=== PATIENT | female | born 1935 | race Caucasian/White ===

== ENCOUNTER 2016-12-18 19:27 | Inpatient (IN) | payer MEDICARE, BC ==
[2016-12-18] MEDS ORDERED: methylPREDNISolone SOD SUCCI 125 MG/2 ML VIAL IV STA (20:14)
[2016-12-18] MEDS ORDERED: AZITHROMYCIN 500 MG in SODIUM CHLORIDE 0.9% 250 ML IVPB STA (20:14)
[2016-12-18] MEDS ORDERED: ALBUTEROL NEBULIZED 2.5 MG/3 ML INHALATION STA (20:14)
[2016-12-18] MEDS ORDERED: IPRATROPIUM 0.5 MG/2.5 ML NEBU INHALATION STA (20:14)
[2016-12-18] MEDS ORDERED: SODIUM CHLORIDE 0.9% 1,000 ML IV STA ×2 (20:14)
[2016-12-18] MEDS ORDERED: LORazepam 2 MG/ML SYRINGE IV STA (20:14)
[2016-12-18 20:27] LABS: Basophils % (A) 0 %; Eosinophils % (A) 0 %; HCT 44.1 % (34.0-46.0); HDW 3.17; HGB 14.8 gm/dL (11.4-16.0); Luc # (Auto) 0.15; Luc % (Auto) 2; Lymphocytes # (A) 1.7 k/uL (1.0-4.8); Lymphocytes % (A) 20 %; MCH 29.1 pg (25.0-35.0); MCHC 33.7 g/dL (31.0-37.0); MCV 86.3 fL (80.0-100.0); Mean Platelet Volume 7.1; Monocytes # (A) 0.6 k/uL (0-1.0); Monocytes % (A) 7 %; Neutrophils # (A) 6.1 k/uL (1.3-7.7); Neutrophils % (A) 71 %; RBC 5.11 m/uL (3.80-5.40); RDW 14.1 % (11.5-15.5); WBC 8.6 k/uL (3.8-10.6); WBC (Perox) 8.97
[2016-12-18 20:48] LABS: ALT 35 U/L (9-52); AST 19 U/L (14-36); Alkaline Phosphatase 122 U/L (38-126); Anion Gap 16 mmol/L; Blood Urea Nitrogen 15 mg/dL (7-17); Calcium 10.3 mg/dL (8.4-10.2); Carbon Dioxide 23 mmol/L (22-30); Chloride 104 mmol/L (98-107); Glucose 113 mg/dL (74-99); Magnesium 1.8 mg/dL (1.6-2.3); Non-African American GFR(MDRD) >60 (>60 ml/min/1.73 sqM); Potassium 3.7 mmol/L (3.5-5.1); Sodium 143 mmol/L (137-145); Total Bilirubin 0.6 mg/dL (0.2-1.3); Total Protein 7.4 g/dL (6.3-8.2)
[2016-12-18 20:58] LABS: Creatine Kinase 25 U/L (30-135); INR 1.1 (<1.1); Prothrombin Time 11.3 sec (9.0-12.0)
[2016-12-18 21:11] LABS: Creatine Kinase MB 0.9 ng/mL (0.0-2.4); Troponin I <0.012 ng/mL (0.000-0.034)
--- NOTE | 2016-12-18 21:14 | ED ---
General Adult HPI - General Chief complaint: Shortness of Breath Stated complaint: Diff breathing Time Seen by Provider: 12/18/16 19:51 Source: patient, RN notes reviewed, old records reviewed Mode of arrival: wheelchair Limitations: no limitations - History of Present Illness Initial comments: This is a 81-year-old female here for evaluation of shortness of cough and congestion, severe shortness of breath history of COPD. Increasing the last 2- 3 days, patient is on home O2. Patient is due. She was at home with no help. She does have increased fever and cough and congestion. Feels like her heart is racing and she has tremors feels very very anxious. No recent travel history , no recent hospitalizations, no sick contacts - Related Data Home Medications Medication Instructions Recorded Confirmed ALPRAZolam [Xanax] 0.5 mg PO BID PRN 12/18/16 12/18/16 Acetaminophen Tab [Tylenol Tab] 650 mg PO Q4H PRN 12/18/16 12/18/16 Cyanocobalamin [Vitamin B-12] 500 mcg PO DAILY 12/18/16 12/18/16 Diltiazem HCl [Cartia Xt] 240 mg PO DAILY 12/18/16 12/18/16 Ipratropium-Albuterol Nebulize 3 ml INHALATION RT-QID PRN 12/18/16 12/18/16 [Duoneb 0.5 mg-3 mg/3 ml Soln] Levofloxacin [Levaquin] 750 mg PO DAILY 12/18/16 12/18/16 Metoprolol Tartrate [Lopressor] 12.5 mg PO BID 12/18/16 12/18/16 Nystatin 100,000 Unit/ml Susp 4 ml PO QID 12/18/16 12/18/16 [Mycostatin Oral Susp] Polyethylene Glycol 3350 [Miralax] 17 gm PO DAILY PRN 12/18/16 12/18/16 Sertraline [Zoloft] 100 mg PO DAILY 12/18/16 12/18/16 Simvastatin [Zocor] 20 mg PO HS 12/18/16 12/18/16 Tiotropium [place] [Spiriva 1 cap INHALATION RT-DAILY 12/18/16 12/18/16 Respimat] Venlafaxine HCl ER [Effexor Xr] 37.5 mg PO BID 12/18/16 12/18/16 guaiFENesin-DM 600/30MG [Mucinex 1 tab PO Q12HR PRN 12/18/16 12/18/16 Dm] Allergies Allergy/AdvReac Type Severity Reaction Status Date / Time codeine Allergy Unknown Verified 12/18/16 19:59 meperidine HCl [From Demerol] Allergy Unknown Verified 12/18/16 19:59 Sulfa (Sulfonamide Allergy Unknown Verified 12/18/16 19:59 Antibiotics) Review of Systems ROS Statement: Those systems with pertinent positive or pertinent negative responses have been documented in the HPI. ROS Other: All systems not noted in ROS Statement are negative. Past Medical History Past Medical History: COPD, Diabetes Mellitus History of Any Multi-Drug Resistant Organisms: None Reported Past Surgical History: Orthopedic Surgery Past Psychological History: No Psychological Hx Reported Smoking Status: Former smoker Past Alcohol Use History: None Reported Past Drug Use History: None Reported General Exam Limitations: no limitations General appearance: alert, in no apparent distress, anxious Head exam: Present: atraumatic, normocephalic, normal inspection Eye exam: Present: normal appearance, PERRL, EOMI. Absent: scleral icterus, conjunctival injection, periorbital swelling ENT exam: Present: normal exam, mucous membranes moist Neck exam: Present: normal inspection. Absent: tenderness, meningismus, lymphadenopathy Respiratory exam: Present: normal lung sounds bilaterally, wheezes, decreased breath sounds, prolonged expiratory. Absent: respiratory distress, rales, rhonchi, stridor Cardiovascular Exam: Present: regular rate, normal rhythm, normal heart sounds. Absent: systolic murmur, diastolic murmur, rubs, gallop, clicks GI/Abdominal exam: Present: soft, normal bowel sounds. Absent: distended, tenderness, guarding, rebound, rigid Extremities exam: Present: normal inspection, full ROM, normal capillary refill. Absent: tenderness, pedal edema, joint swelling, calf tenderness Back exam: Present: normal inspection Neurological exam: Present: alert, oriented X3, CN II-XII intact Psychiatric exam: Present: normal affect, normal mood Skin exam: Present: warm, dry, intact, normal color. Absent: rash Course Vital Signs 12/18/16 12/18/16 12/18/16 19:30 20:13 21:02 Temperature 98.9 F Pulse Rate 69 110 H 90 Respiratory 24 18 Rate Blood Pressure 139/105 180/86 O2 Sat by Pulse 87 L 96 Oximetry 12/18/16 12/18/16 21:33 21:44 Temperature Pulse Rate 100 100 Respiratory 16 Rate Blood Pressure 139/86 O2 Sat by Pulse 97 Oximetry - Reevaluation(s) Reevaluation #1: 12/18/16 21:14 Patient's breathing is much improved with prolonged breathing treatment EKG Findings - EKG Comments: EKG Findings:: EKG shows sinus tachycardia rate 103, by mouth 40, QRS 112, QTC 453 Medical Decision Making - Medical Decision Making 81 female here for evaluation shortness of breath, patient with anxiety as well , patient has COPD exacerbation with hypoxia improved. She will admit for steroids and continued breathing treatments as well as anti-anxiety medications - Lab Data Result diagrams: 12/18/16 20:00 12/18/16 20:00 Lab Results 12/18/16 12/18/16 12/18/16 Range/Units 20:00 20:00 20:00 WBC 8.6 (3.8-10.6) k/uL RBC 5.11 (3.80-5.40) m/uL Hgb 14.8 (11.4-16.0) gm/dL Hct 44.1 (34.0-46.0) % MCV 86.3 (80.0-100.0) fL MCH 29.1 (25.0-35.0) pg MCHC 33.7 (31.0-37.0) g/dL RDW 14.1 (11.5-15.5) % Plt Count 221 (150-450) k/uL Neutrophils % 71 % Lymphocytes % 20 % Monocytes % 7 % Eosinophils % 0 % Basophils % 0 % Neutrophils # 6.1 (1.3-7.7) k/uL Lymphocytes # 1.7 (1.0-4.8) k/uL Monocytes # 0.6 (0-1.0) k/uL Eosinophils # 0.0 (0-0.7) k/uL Basophils # 0.0 (0-0.2) k/uL PT (9.0-12.0) sec INR (<1.1) APTT (22.0-30.0) sec Sodium 143 (137-145) mmol/L Potassium 3.7 (3.5-5.1) mmol/L Chloride 104 (98-107) mmol/L Carbon Dioxide 23 (22-30) mmol/L Anion Gap 16 mmol/L BUN 15 (7-17) mg/dL Creatinine 0.82 (0.52-1.04) mg/dL Est GFR (MDRD) Af Amer >60 (>60 ml/min/1.73 sqM) Est GFR (MDRD) Non-Af >60 (>60 ml/min/1.73 sqM) Glucose 113 H (74-99) mg/dL Calcium 10.3 H (8.4-10.2) mg/dL Magnesium 1.8 (1.6-2.3) mg/dL Total Bilirubin 0.6 (0.2-1.3) mg/dL AST 19 (14-36) U/L ALT 35 (9-52) U/L Alkaline Phosphatase 122 (38-126) U/L Total Creatine Kinase 25 L (30-135) U/L CK-MB (CK-2) 0.9 (0.0-2.4) ng/mL CK-MB (CK-2) Rel Index 3.6 Troponin I <0.012 (0.000-0.034) ng/mL NT-Pro-B Natriuret Pep pg/mL Total Protein 7.4 (6.3-8.2) g/dL Albumin 4.3 (3.5-5.0) g/dL 12/18/16 12/18/16 Range/Units 20:00 20:00 WBC (3.8-10.6) k/uL RBC (3.80-5.40) m/uL Hgb (11.4-16.0) gm/dL Hct (34.0-46.0) % MCV (80.0-100.0) fL MCH (25.0-35.0) pg MCHC (31.0-37.0) g/dL RDW (11.5-15.5) % Plt Count (150-450) k/uL Neutrophils % % Lymphocytes % % Monocytes % % Eosinophils % % Basophils % % Neutrophils # (1.3-7.7) k/uL Lymphocytes # (1.0-4.8) k/uL Monocytes # (0-1.0) k/uL Eosinophils # (0-0.7) k/uL Basophils # (0-0.2) k/uL PT 11.3 (9.0-12.0) sec INR 1.1 (<1.1) APTT 24.0 (22.0-30.0) sec Sodium (137-145) mmol/L Potassium (3.5-5.1) mmol/L Chloride (98-107) mmol/L Carbon Dioxide (22-30) mmol/L Anion Gap mmol/L BUN (7-17) mg/dL Creatinine (0.52-1.04) mg/dL Est GFR (MDRD) Af Amer (>60 ml/min/1.73 sqM) Est GFR (MDRD) Non-Af (>60 ml/min/1.73 sqM) Glucose (74-99) mg/dL Calcium (8.4-10.2) mg/dL Magnesium (1.6-2.3) mg/dL Total Bilirubin (0.2-1.3) mg/dL AST (14-36) U/L ALT (9-52) U/L Alkaline Phosphatase (38-126) U/L Total Creatine Kinase (30-135) U/L CK-MB (CK-2) (0.0-2.4) ng/mL CK-MB (CK-2) Rel Index Troponin I (0.000-0.034) ng/mL NT-Pro-B Natriuret Pep 1570 pg/mL Total Protein (6.3-8.2) g/dL Albumin (3.5-5.0) g/dL - Radiology Data Radiology results: report reviewed (Chest x-ray 2 views negative for acute disease), image reviewed Disposition Clinical Impression: Acute exacerbation of chronic obstructive airways disease Disposition: ADMITTED IP TO THIS HOSP Condition: Fair Referrals: Jensen Armstrong DO [Primary Care Provider] - 1-2 days
[2016-12-18 23:01] LABS: Glucose,Whole Blood 177 mg/dL (75-99)
[2016-12-18] MEDS: SODIUM CHLORIDE 0.9% 1,000 ML IV SCH (23:26)
[2016-12-18] MEDS ORDERED: INSULIN LISPRO (humaLOG) 300 UNIT/3 ML VIAL SQ ONE (23:48)
[2016-12-19] MEDS: methylPREDNISolone SOD SUCCI 125 MG/2 ML VIAL IV SCH ×5 (05:35→23:11)
[2016-12-19] MEDS: IPRATROPIUM-ALBUTEROL 3 ML NEB INHALATION SCH ×4 (06:51→19:10)
--- NOTE | 2016-12-19 06:51 | XR ---
EXAMINATION TYPE: XR chest 2V DATE OF EXAM: 12/19/2016 6:47 AM COMPARISON: 07/31/2016 HISTORY: Difficulty breathing TECHNIQUE: Frontal and lateral views of the chest are obtained. FINDINGS: There is mild linear density in the right midlung. There is no heart failure. Costophrenic angles are clear. There are no hilar masses. There are chest leads. IMPRESSION: There is atelectasis in the right midlung that is increased compared to last exam. No he art failure.
[2016-12-19 07:32] LABS: Glucose,Whole Blood 158 mg/dL (75-99)
[2016-12-19] MEDS: SODIUM CHLORIDE 0.9% 1,000 ML IV SCH (07:48)
[2016-12-19] MEDS: INSULIN LISPRO (humaLOG) 300 UNIT/3 ML VIAL SQ SCH ×4 (07:48→20:29)
[2016-12-19] MEDS: ENOXAPARIN 40 MG/0.4 ML SYRINGE SQ SCH (07:48)
[2016-12-19 08:18] LABS: Hemoglobin A1C 5.4 % (4.2-6.1)
[2016-12-19] MEDS ORDERED: guaiFENesin-DM 600/30MG 1 EACH TAB.ER.12H PO PRN (09:46)
[2016-12-19] MEDS ORDERED: IPRATROPIUM-ALBUTEROL 3 ML NEB INHALATION PRN (09:46)
[2016-12-19] MEDS ORDERED: ALPRAZolam 0.5 MG TAB PO PRN (09:46)
[2016-12-19] MEDS ORDERED: POLYETHYLENE GLYCOL 3350 17 GM POWD.PACK PO PRN (09:46)
[2016-12-19] MEDS ORDERED: NYSTATIN 100,000 UNIT/ML SUSP 500,000 UNIT/5 ML CUP PO SCH (10:00)
[2016-12-19] MEDS ORDERED: VENLAFAXINE HCL ER 37.5 MG CAP PO SCH (10:00)
--- NOTE | 2016-12-19 10:27 | P.CNPUL ---
History of Present Illness Consult date: 12/19/16 Reason for consult: dyspnea, COPD, other Chief complaint: Shortness of breath and dysphasia History of present illness: This is an 81-year-old female who apparently presented to the emergency department with complaints of shortness of breath chest congestion and also difficulty swallowing. She apparently was seen by Dr. Chavarria earlier this week and given some nystatin swish and swallow. She she apparently developed some difficulty swallowing with this medication for that reason she came to the emergency room with complaints of shortness of breath and dysphasia. Also chest congestion and cough. Did have some slight temperature elevation and she felt like her heart was racing. Not a particularly good historian. Review of Systems A 12 point review of system is positive for shortness of breath chest congestion cough difficulty swallowing palpitations and some minimal phlegm production. Past Medical History Past Medical History: COPD, Diabetes Mellitus History of Any Multi-Drug Resistant Organisms: None Reported Past Surgical History: Hysterectomy, Orthopedic Surgery Past Anesthesia/Blood Transfusion Reactions: No Reported Reaction Past Psychological History: No Psychological Hx Reported Smoking Status: Former smoker Past Alcohol Use History: None Reported Past Drug Use History: None Reported Medications and Allergies Home Medications Medication Instructions Recorded Confirmed Type ALPRAZolam [Xanax] 0.5 mg PO BID PRN 12/18/16 12/18/16 History Acetaminophen Tab [Tylenol Tab] 650 mg PO Q4H PRN 12/18/16 12/18/16 History Cyanocobalamin [Vitamin B-12] 500 mcg PO DAILY 12/18/16 12/18/16 History Diltiazem HCl [Cartia Xt] 240 mg PO DAILY 12/18/16 12/18/16 History Ipratropium-Albuterol Nebulize 3 ml INHALATION RT-QID PRN 12/18/16 12/18/16 History [Duoneb 0.5 mg-3 mg/3 ml Soln] Levofloxacin [Levaquin] 750 mg PO DAILY 12/18/16 12/18/16 History Metoprolol Tartrate [Lopressor] 12.5 mg PO BID 12/18/16 12/18/16 History Nystatin 100,000 Unit/ml Susp 4 ml PO QID 12/18/16 12/18/16 History [Mycostatin Oral Susp] Polyethylene Glycol 3350 [Miralax] 17 gm PO DAILY PRN 12/18/16 12/18/16 History Sertraline [Zoloft] 100 mg PO DAILY 12/18/16 12/18/16 History Simvastatin [Zocor] 20 mg PO HS 12/18/16 12/18/16 History Tiotropium [place] [Spiriva 1 cap INHALATION RT-DAILY 12/18/16 12/18/16 History Respimat] Venlafaxine HCl ER [Effexor Xr] 37.5 mg PO BID 12/18/16 12/18/16 History guaiFENesin-DM 600/30MG [Mucinex 1 tab PO Q12HR PRN 12/18/16 12/18/16 History Dm] Allergies Allergy/AdvReac Type Severity Reaction Status Date / Time codeine Allergy hives Verified 12/18/16 23:24 meperidine HCl [From Demerol] Allergy Unknown Verified 12/18/16 19:59 Sulfa (Sulfonamide Allergy Unknown Verified 12/18/16 19:59 Antibiotics) Physical Exam Osteopathic Statement: *. No significant issues noted on an osteopathic structural exam other than those noted in the History and Physical/Consult. Vitals: Vital Signs Temp Pulse Pulse Resp BP BP BP 12/19/16 07:01 94 12/19/16 07:00 96.1 F L 97 16 146/91 12/19/16 06:51 92 12/18/16 23:00 99.2 F 108 H 18 158/77 12/18/16 21:44 100 16 139/86 12/18/16 21:33 100 Pulse Ox 12/19/16 07:01 12/19/16 07:00 98 12/19/16 06:51 12/18/16 23:00 94 L 12/18/16 21:44 97 12/18/16 21:33 Intake and Output 12/18/16 12/19/16 12/19/16 22:59 06:59 14:59 Intake Total 240 120 Balance 240 120 Intake: Oral 240 120 Other: Voiding Method Bedside Commode Bedside Commode # Voids 0 2 # Bowel Movements 0 1 No acute distress. Oriented 3. Very poor historian. Laying flat in bed. No respiratory distress. No audible wheezing. HEENT examination is grossly unremarkable. Mucous membranes are moist. No oral lesions. Neck supple. Full range of motion. No adenopathy. Cardiovascular examination reveals borderline tachycardia. Heart rate right around 100. S1 and S2 normal. There is no murmur. Lungs reveal few scattered rhonchi wheezes. Breath sounds diminished. There is prolongation on forced maneuver. No crackles. Abdomen soft bowel sounds are heard. Extremities are intact. Results - Laboratory Findings CBC and BMP: 12/18/16 20:00 12/18/16 20:00 PT/INR, D-dimer PT 11.3 sec (9.0-12.0) 12/18/16 20:00 INR 1.1 (<1.1) 12/18/16 20:00 Abnormal lab findings: Abnormal Labs 12/18/16 12/19/16 22:59 07:05 POC Glucose (mg/dL) 177 H 158 H - Diagnostic Findings Chest x-ray: image reviewed (Chest x-ray labs and medications are all reviewed.) Assessment and Plan (1) Dysphasia Status: Acute (2) Acute exacerbation of chronic obstructive airways disease Status: Acute Plan: Plan The patient's medications x-rays and labs are reviewed. We'll make she's sure she is on all the usual medications for COPD exacerbation. The medicine that Dr. Chavarria gave her for dysphasia was nystatin swish and swallow. She will not get anymore that. I'm not sure whether or not she had an ALLERGIC reaction to it or not. Other than that everything seemed be reasonably stable. Time with Patient: Greater than 30
[2016-12-19] MEDS: METOPROLOL TARTRATE 12.5 MG TAB PO SCH ×2 (10:29→20:29)
[2016-12-19] MEDS: DILTIAZEM CD 240 MG CAP.ER.24H PO SCH (10:29)
[2016-12-19] MEDS: SERTRALINE 100 MG TAB PO SCH (10:29)
[2016-12-19 12:14] LABS: Glucose,Whole Blood 138 mg/dL (75-99)
[2016-12-19] MEDS: FUROSEMIDE 10 MG/ML 2 ML VIAL IV SCH ×2 (12:54→17:30)
--- NOTE | 2016-12-19 13:03 | HP ---
DATE OF ADMISSION: 12/18/2016 PRESENTING COMPLAINT: Short of breath. HISTORY OF PRESENTING COMPLAINT: This is a pleasant 81-year-old patient of Dr. Armstrong with long-standing history of COPD, diabetes mellitus type 2, depression, hypertension, hypercholesterolemia, the latter conditions which are stable. Patient presented with congestion, short of breath going on at least for 5 days. No phlegm, no fever. Decreased appetite, rundown. Admitted for the same. REVIEW OF SYSTEMS: CONSTITUTIONAL: Tired. HEENT: None. RESPIRATORY: As above. CARDIOVASCULAR: As above. GASTROINTESTINAL: None. GENITOURINARY: None. MUSCULOSKELETAL: None. DERMATOLOGIC: None. HEMATOLOGIC: None. LYMPHATIC: None. PSYCHIATRY: Some anxiety. NEUROLOGICAL: None. Past medical history of COPD, diabetes mellitus type 2, depression, hypercholesterolemia. PAST SURGICAL HISTORY: Hysterectomy, orthopedic surgery. SOCIAL HISTORY: Patient is an ex-smoker, lives with 3 sons. Has a ( ) when she goes outside the house. FAMILY HISTORY: Reviewed, noncontributory to the presentation. HOME MEDICATIONS: 1. Zoloft 100 mg a day. 2. Nystatin suspension 4 mL q.i.d. 3. Lopressor 12.5 p.o. b.i.d. 4. Vitamin B12, 500 mcg p.o. daily. 5. Xanax 0.5 p.o. b.i.d. p.r.n. 6. Mucinex DM 1 tablet p.o. q.12 p.r.n. 7. Effexor XR 37.5 mg p.o. b.i.d. 8. Spiriva 1 capsule daily. 9. Zocor 20 mg p.o. q.h.s. 10. MiraLAX 17 grams p.o. daily p.r.n. 11. Levaquin 750 mg p.o. daily. 12. DuoNeb 3 mL q.i.d. p.r.n. 13. Cartia XT 240 mg daily. Allergies to CODEINE, MEPERIDINE, SULFA. On examination, temperature 98.9, pulse 69, respirations 24, blood pressure 139/105, pulse ox 87% on 3 L. GENERAL APPEARANCE: Average build, lying in bed, tired appearing, short of breath at rest. EYES: Pupils equal. Conjunctivae normal. HEENT: External appearance of nose and ears normal. Oral cavity normal. NECK: JVD possibly raised. Mass not palpable. RESPIRATORY: Effort increased. LUNGS: Basal crackles ( ) wheezing. CARDIOVASCULAR: First and second sounds normal. Mild edema. ABDOMEN: Soft, nontender. Liver and spleen not palpable. LYMPHATIC: No lymph nodes palpable in neck or axillae. PSYCHIATRY: Alert and oriented x3. Mood and affect anxious appearing. NEUROLOGICAL: Pupils equal. Cranial nerves grossly intact. Power and sensation grossly intact. Mild tremors. MUSCULOSKELETAL: Evidence of osteoarthritis of multiple joints. INVESTIGATIONS: White count 8.6, hemoglobin 14.8 . Potassium 3.7. BUN and creatinine normal. ProBNP 1570. Chest x-ray shows right basilar infiltrate and vascular prominence it looks like. ASSESSMENT: 1. Right lower lobe pneumonia, present on admission, suspect gram-negative organism. 2. Acute chronic obstructive pulmonary disease exacerbation in an ex-smoker. 3. Possibly acute congestive heart failure, ejection fraction not known. The patient has elevated BNP and some basal crackles. 4. Depression, not otherwise specified. 5. Hypercholesterolemia. 6. Primary osteoarthritis of multiple joints, bilateral, chronic. PLAN: Patient started on nebulized bronchodilators, IV steroids. Also put the patient on small dose of Lasix. Will ( ) the IV fluids. Get a 2-D echocardiogram. Care was discussed with the patient. Pulmonary opinion was mabel. Home medications are resumed.
[2016-12-19 17:07] LABS: Glucose,Whole Blood 156 mg/dL (75-99)
[2016-12-19] MEDS: SYMBICORT 160-4.5 MCG INHALER INHALATION SCH (19:10)
[2016-12-19 20:24] LABS: Glucose,Whole Blood 139 mg/dL (75-99)
[2016-12-19] MEDS: ATORVASTATIN 10 MG TAB PO SCH (20:29)
[2016-12-20] MEDS: methylPREDNISolone SOD SUCCI 125 MG/2 ML VIAL IV SCH (05:28)
[2016-12-20 07:15] LABS: Glucose,Whole Blood 124 mg/dL (75-99)
[2016-12-20] MEDS: INSULIN LISPRO (humaLOG) 300 UNIT/3 ML VIAL SQ SCH ×4 (07:50→21:13)
[2016-12-20] MEDS ORDERED: TIOTROPIUM 18 MCG/PUFF INHALER INHALATION SCH (08:00)
[2016-12-20] MEDS: SYMBICORT 160-4.5 MCG INHALER INHALATION SCH ×2 (08:28→20:27)
[2016-12-20] MEDS: IPRATROPIUM-ALBUTEROL 3 ML NEB INHALATION SCH ×4 (08:28→20:27)
[2016-12-20] MEDS: METOPROLOL TARTRATE 12.5 MG TAB PO SCH ×2 (08:46→21:12)
[2016-12-20] MEDS: SERTRALINE 100 MG TAB PO SCH (08:46)
[2016-12-20] MEDS: ENOXAPARIN 40 MG/0.4 ML SYRINGE SQ SCH (08:47)
[2016-12-20] MEDS: DILTIAZEM CD 240 MG CAP.ER.24H PO SCH (08:47)
--- NOTE | 2016-12-20 11:38 | P.PN ---
Subjective Progress note dated 12/20/2016 This is an 81-year-old female who presented to the emergency department with complaints of shortness of breath and chest congestion. She also apparently has some dysphasia. She believes dysphagia was caused by some nystatin swish and swallow given to her by my partner who she saw earlier this week MR office. From the pulmonary standpoint doing relatively well. In my opinion she could be discharged. Not complaining of any shortness of breath chest congestion tightness or other pulmonary complaints at this time. The difficulty swallowing has improved. Her primary physicians in [place]. Objective - Vital Signs Vital signs: Vital Signs Temp 98.3 F 12/20/16 07:00 Pulse 84 12/20/16 08:46 Resp 20 12/20/16 07:00 BP 146/80 12/20/16 07:00 Pulse Ox 94 L 12/20/16 07:00 Intake & Output 12/19/16 12/20/16 12/20/16 18:59 06:59 18:59 Intake Total 240 240 Balance 240 240 Intake: Oral 240 240 Other: Voiding Method Bedside Commode Toilet Bedside Commode # Voids 7 2 # Bowel Movements 2 - Exam No acute distress, oriented 3. HEENT examination is grossly unremarkable. Mucous membranes are moist. Neck supple. Full range of motion. No adenopathy or thyromegaly. Neck veins are flat. Cardiovascular examination reveals regular rhythm rate. S1-S2 normal. No murmur. Lungs reveal relatively clear breath sounds. Breath sounds are diminished. No wheezes rhonchi or crackles to any great extent. Slight prolongation. Abdomen soft bowel sounds are heard. Extremities are intact. - Labs CBC & Chem 7: 12/18/16 20:00 12/18/16 20:00 Labs: Abnormal Lab Results - Last 24 Hours (Table) 12/19/16 12/19/16 12/19/16 Range/Units 11:55 17:01 20:23 POC Glucose (mg/dL) 138 H 156 H 139 H (75-99) mg/dL 12/20/16 Range/Units 06:53 POC Glucose (mg/dL) 124 H (75-99) mg/dL Assessment and Plan (1) Dysphasia Status: Acute (2) Acute exacerbation of chronic obstructive airways disease Status: Acute Plan: Plan The patient's medications x-rays and labs are reviewed. We'll make she's sure she is on all the usual medications for COPD exacerbation. The medicine that Dr. Chavarria gave her for dysphasia was nystatin swish and swallow. She will not get anymore that. I'm not sure whether or not she had an ALLERGIC reaction to it or not. Other than that everything seemed be reasonably stable. Plan dated 12/20/2016 The patient seems be doing relatively well. All her lab work was within normal range. The patient believes that her primary problem was difficulty swallowing some soda reaction to nystatin swish and swallow. I told she would not get anymore that. From the pulmonary standpoint she is doing well and could be discharged home. Additional recommendations suggestions are forthcoming. Time with Patient: Less than 30
[2016-12-20 12:05] LABS: Anion Gap 12 mmol/L; Blood Urea Nitrogen 24 mg/dL (7-17); Carbon Dioxide 27 mmol/L (22-30); Chloride 101 mmol/L (98-107); Glucose 137 mg/dL (74-99); Non-African American GFR(MDRD) >60 (>60 ml/min/1.73 sqM); Sodium 140 mmol/L (137-145)
[2016-12-20 12:13] LABS: Potassium 2.8 mmol/L (3.5-5.1)
[2016-12-20 12:29] LABS: Glucose,Whole Blood 123 mg/dL (75-99)
[2016-12-20] MEDS: POTASSIUM CHLORIDE ER 20 MEQ TAB.ER PO SCH ×2 (16:07→17:39)
[2016-12-20 17:18] LABS: Glucose,Whole Blood 117 mg/dL (75-99)
[2016-12-20 21:10] LABS: Glucose,Whole Blood 132 mg/dL (75-99)
[2016-12-20] MEDS: ATORVASTATIN 10 MG TAB PO SCH (21:12)
--- NOTE | 2016-12-20 22:42 | PN ---
DATE OF SERVICE: 12/20/2016 PRESENTING COMPLAINT: Short of breath. INTERVAL HISTORY: This is a patient with pneumonia, COPD exacerbation and possible CHF exacerbation. Patient is feeling a bit better, sitting up, did tolerate some diet. Review of systems done for constitutional, cardiovascular, GI, pulmonary; relevant findings as above. Current medications are reviewed that include: 1. DuoNeb. 2. Oral prednisone. On examination, temperature 99, pulse 111, respiration 20, blood pressure 102/85, pulse ox 94% on 3L. GENERAL APPEARANCE: Sitting up, not in distress. EYES: Pupils equal. Conjunctivae normal. NECK: JVD not raised. Mass not palpable. RESPIRATORY: Effort increased. LUNGS: Decreased wheezing. Improved air entry. CARDIOVASCULAR: First and second sounds normal. No edema. ABDOMEN: Soft, nontender. Liver and spleen not palpable. PSYCHIATRIC: Alert and oriented x3. Mood and affect normal. INVESTIGATIONS: Potassium ( ), BUN 24, creatinine 0.7. ASSESSMENT: 1. Right lower lobe pneumonia, present on admission, suspect gram-negative organism with clinical improvement. 2. Acute chronic obstructive pulmonary disease exacerbation in an ex-smoker, improving. 3. Acute congestive heart failure exacerbation, ejection fraction not known, doing better. 4. Depression, not otherwise specified. 5. Hypercholesterolemia. 6. Primary osteoarthritis in multiple joints, bilateral. PLAN: Patient is switched over to oral prednisone. Lasix was discontinued. Two-D echo is pending. Results are pending. Follow.
[2016-12-21 07:31] LABS: Glucose,Whole Blood 99 mg/dL (75-99)
[2016-12-21] MEDS: METOPROLOL TARTRATE 12.5 MG TAB PO SCH (07:33)
[2016-12-21] MEDS: SERTRALINE 100 MG TAB PO SCH (07:33)
[2016-12-21] MEDS: DILTIAZEM CD 240 MG CAP.ER.24H PO SCH (07:34)
[2016-12-21] MEDS: ENOXAPARIN 40 MG/0.4 ML SYRINGE SQ SCH (07:34)
[2016-12-21] MEDS: INSULIN LISPRO (humaLOG) 300 UNIT/3 ML VIAL SQ SCH ×2 (07:34→12:40)
[2016-12-21 07:44] VITALS: RESP 20
[2016-12-21] MEDS: IPRATROPIUM-ALBUTEROL 3 ML NEB INHALATION SCH ×3 (08:08→15:52)
[2016-12-21] MEDS: SYMBICORT 160-4.5 MCG INHALER INHALATION SCH (08:08)
[2016-12-21] MEDS ORDERED: predniSONE 20 MG TAB PO SCH (09:00)
--- NOTE | 2016-12-21 11:11 | P.PN ---
Subjective Progress note dated 12/20/2016 This is an 81-year-old female who presented to the emergency department with complaints of shortness of breath and chest congestion. She also apparently has some dysphasia. She believes dysphagia was caused by some nystatin swish and swallow given to her by my partner who she saw earlier this week MR office. From the pulmonary standpoint doing relatively well. In my opinion she could be discharged. Not complaining of any shortness of breath chest congestion tightness or other pulmonary complaints at this time. The difficulty swallowing has improved. Her primary physicians in [place]. Progress note dated 12/21/2016 This 81-year-old female is doing much better. She was admitted through the emergency department with complaints of shortness of breath and chest congestion. She apparently also had some difficulty swallowing which she thought was caused by the nystatin swish and swallow given to her by my partner. Anyway from my standpoint she doing much better. She could be discharged home. Feeling well. Her breathing is improved chest congestion has improved. Objective - Vital Signs Vital signs: Vital Signs Temp 98.9 F 12/21/16 07:00 Pulse 92 12/21/16 08:20 Resp 20 12/21/16 07:00 BP 144/81 12/21/16 07:00 Pulse Ox 93 L 12/21/16 07:00 Intake & Output 12/20/16 12/21/16 12/21/16 18:59 06:59 18:59 Intake Total 365 240 Balance 365 240 Intake: Oral 365 240 Other: Voiding Method Toilet Toilet Bedside Commode Bedside Commode # Voids 2 2 # Bowel Movements 1 - Exam No acute distress, oriented 3. HEENT examination is grossly unremarkable. Mucous membranes are moist. Neck supple. Full range of motion. No adenopathy or thyromegaly. Neck veins are flat. Cardiovascular examination reveals regular rhythm rate. S1-S2 normal. No murmur. Lungs reveal relatively clear breath sounds. Breath sounds are diminished. No wheezes rhonchi or crackles to any great extent. Slight prolongation. Abdomen soft bowel sounds are heard. Extremities are intact. - Labs CBC & Chem 7: 12/18/16 20:00 12/20/16 11:19 Labs: Abnormal Lab Results - Last 24 Hours (Table) 12/20/16 12/20/16 12/20/16 Range/Units 11:19 11:48 16:47 Potassium 2.8 L* (3.5-5.1) mmol/L BUN 24 H (7-17) mg/dL Glucose 137 H (74-99) mg/dL POC Glucose (mg/dL) 123 H 117 H (75-99) mg/dL 12/20/16 Range/Units 21:09 Potassium (3.5-5.1) mmol/L BUN (7-17) mg/dL Glucose (74-99) mg/dL POC Glucose (mg/dL) 132 H (75-99) mg/dL Assessment and Plan (1) Dysphasia Status: Acute (2) Acute exacerbation of chronic obstructive airways disease Status: Acute Plan: Plan The patient's medications x-rays and labs are reviewed. We'll make she's sure she is on all the usual medications for COPD exacerbation. The medicine that Dr. Chavarria gave her for dysphasia was nystatin swish and swallow. She will not get anymore that. I'm not sure whether or not she had an ALLERGIC reaction to it or not. Other than that everything seemed be reasonably stable. Plan dated 12/20/2016 The patient seems be doing relatively well. All her lab work was within normal range. The patient believes that her primary problem was difficulty swallowing some soda reaction to nystatin swish and swallow. I told she would not get anymore that. From the pulmonary standpoint she is doing well and could be discharged home. Additional recommendations suggestions are forthcoming. Plan dated 12/21/2016 The patient is doing well both from the standpoint of her breathing and also the difficulty in swallowing. Not coughing up any phlegm. No wheezes. Not short of breath. Could be discharged home as mentioned yesterday. Medications labs and x-rays will be reviewed. Time with Patient: Less than 30
[2016-12-21 11:16] LABS: Basophils % (A) 0 %; CH 30.2; CHCM 35.3; Eosinophils # (A) 0.1 k/uL (0-0.7); Eosinophils % (A) 0 %; HDW 3.18; HGB 13.9 gm/dL (11.4-16.0); Luc # (Auto) 0.09; Luc % (Auto) 1; Lymphocytes # (A) 0.6 k/uL (1.0-4.8); Lymphocytes % (A) 5 %; MCH 28.5 pg (25.0-35.0); MCV 86.2 fL (80.0-100.0); Mean Platelet Volume 7.7; Monocytes # (A) 0.7 k/uL (0-1.0); Monocytes % (A) 6 %; Neutrophils % (A) 88 %; RBC 4.87 m/uL (3.80-5.40); RDW 14.1 % (11.5-15.5); WBC 12.5 k/uL (3.8-10.6); WBC (Perox) 12.57
[2016-12-21 11:32] LABS: ALT 36 U/L (9-52); AST 20 U/L (14-36); Alkaline Phosphatase 94 U/L (38-126); Anion Gap 7 mmol/L; Blood Urea Nitrogen 26 mg/dL (7-17); Calcium 9.5 mg/dL (8.4-10.2); Carbon Dioxide 28 mmol/L (22-30); Chloride 104 mmol/L (98-107); Glucose 116 mg/dL (74-99); Non-African American GFR(MDRD) >60 (>60 ml/min/1.73 sqM); Potassium 3.8 mmol/L (3.5-5.1); Sodium 139 mmol/L (137-145); Total Bilirubin 0.5 mg/dL (0.2-1.3); Total Protein 6.3 g/dL (6.3-8.2)
[2016-12-21 12:38] LABS: Glucose,Whole Blood 120 mg/dL (75-99)
[2016-12-21 12:47] LABS: RBC Morphology Normal
[2016-12-21 15:11] VITALS: BP 121/91; TEMP 98.3
[2016-12-21 15:55] VITALS: PULSE 92
--- NOTE | 2016-12-22 09:48 | ECHOF ---
Referral Reason:assess LV function MEASUREMENTS -------- HEIGHT: 152.4 cm WEIGHT: 68.0 kg BP: 146/91 RVIDd: 3.1 cm (< 3.3) IVSd: 1.3 cm (0.6 - 1.1) LVIDd: 4.0 cm (3.9 - 5.3) LVPWd: 1.2 cm (0.6 - 1.1) IVSs: 1.8 cm LVIDs: 2.8 cm LVPWs: 2.0 cm LA Diam: 3.7 cm (2.7 - 3.8) LAESV Index (A-L): 25.70 ml/m Ao Diam: 3.0 cm (2.0 - 3.7) AV Cusp: 2.2 cm (1.5 - 2.6) LA Diam: 3.0 cm (2.7 - 3.8) MV EXCURSION: 12.842 mm (> 18.000) MV EF SLOPE: 123 mm/s (70 - 150) EPSS: 0.9 cm MV E Keith: 0.75 m/s MV DecT: 72 ms MV A Keith: 1.26 m/s MV E/A Ratio: 0.59 AR PHT: 607 ms RAP: 5.00 mmHg RVSP: 43.54 mmHg FINDINGS -------- This was a technically good study. There is borderline concentric left ventricular hypertrophy. Overall left ventricular systolic function is normal with, an EF between 55 - 60 %. The right ventricle is normal in size. Normal LA size by volume 22+/-6 ml/m2. The right atrium is normal in size. Aortic valve is trileaflet and is mildly thickened. There is mild aortic regurgitation. The mitral valve leaflets are mildly thickened. Mild mitral annular calcification present. Mild tricuspid regurgitation present. There is mild pulmonary hypertension. The right ventricular systolic pressure, as measured by Doppler, is 43.54mmHg. Pulmonic valve appears structurally normal. The aortic root size is normal. Normal inferior vena cava with normal inspiratory collapse consistent with estimated right atrial pressure of 5 mmHg. There is no pericardial effusion. CONCLUSIONS -------- 1. This was a technically good study. 2. Mild mitral annular calcification present. 3. Mild tricuspid regurgitation present. 4. There is mild pulmonary hypertension. 5. The right ventricular systolic pressure, as measured by Doppler, is 43.54mmHg. 6. Pulmonic valve appears structurally normal. 7. The aortic root size is normal. 8. There is no pericardial effusion. 9. There is borderline concentric left ventricular hypertrophy. 10. Overall left ventricular systolic function is normal with, an EF between 55 - 60 %. 11. The right ventricle is normal in size. 12. Normal LA size by volume 22+/-6 ml/m2. 13. The right atrium is normal in size. 14. Aortic valve is trileaflet and is mildly thickened. 15. There is mild aortic regurgitation. 16. The mitral valve leaflets are mildly thickened. RN AMBULATORY: Tahira Hartman RDCS
--- NOTE | 2016-12-22 19:14 | DS ---
DATE OF ADMISSION: 12/18/2016 DATE OF DISCHARGE: 12/21/2016 FINAL DIAGNOSIS(ES): 1. Right lower lobe pneumonia, present on admission, suspect gram-negative organism. 2. Acute chronic obstructive pulmonary disease exacerbation in an ex-smoker. 3. Acute congestive heart failure exacerbation, ejection fraction not known. 4. Depression not otherwise specified. 5. Hypercholesterolemia. 6. Primary osteoarthritis in multiple joints, bilateral. Consultation with Dr. Baca. HOSPITAL COURSE: This patient presented with shortness of breath, congestion, going on for about 5 days. Chest x-ray shows some basilar infiltrates. Doing much better. Seen by Dr. Baca who okayed the patient to be discharged. The patient is doing much better. On examination: LUNGS: Improved air entry. CARDIOVASCULAR: First and second seconds are normal. DISCHARGE MEDICATIONS: 1. Xanax 0.5 p.o. b.i.d. p.r.n. 2. Tylenol 650 mg q.4 p.r.n. 3. Vitamin B12 500 mcg p.o. daily. 4. Cartia XT 240 mg p.o. daily. 5. Duoneb q.i.d. p.r.n. 6. Lopressor 12.5 p.o. b.i.d. 7. Mycostatin suspension 4 mL p.o. q.i.d. 8. MiraLax 17 grams p.o. daily p.r.n. 9. Zoloft 100 mg p.o. daily. 10. Zocor 20 mg p.o. q.h.s. 11. Spiriva 1 capsule p.o. daily. 12. Effexor-XR 37.5 mg p.o. b.i.d. 13. Mucinex DM q.12 p.r.n. 14. ( ) p.o. daily. 15. Prednisone 20 mg for 3 days. Follow up with Dr. Armstrong in 3 days.
== END 2016-12-21 16:49 | disposition home or self-care (01) | DRG 190 ==
LOC: EC 19:27 → 4MS4W 21:28
PROVIDERS: ADMIT Hospitalist; ATTEND Hospitalist
DX: J44.0 Chronic obstructive pulmonary disease with (acute) lower respiratory infection (principal); J15.6 Pneumonia due to other Gram-negative bacteria; I11.0 Hypertensive heart disease with heart failure; I50.9 Heart failure, unspecified; Z99.81 Dependence on supplemental oxygen; E11.9 Type 2 diabetes mellitus without complications; J44.1 Chronic obstructive pulmonary disease with (acute) exacerbation; E78.00 Pure hypercholesterolemia, unspecified; R25.1 Tremor, unspecified; R09.02 Hypoxemia; R00.0 Tachycardia, unspecified; R00.2 Palpitations; R13.10 Dysphagia, unspecified; F32.9 Major depressive disorder, single episode, unspecified; M19.91 Primary osteoarthritis, unspecified site; F41.9 Anxiety disorder, unspecified; R47.02 Dysphasia; Z87.891 Personal history of nicotine dependence; Z88.2 Allergy status to sulfonamides; Z88.5 Allergy status to narcotic agent; Z90.710 Acquired absence of both cervix and uterus; Z79.2 Long term (current) use of antibiotics; Z79.51 Long term (current) use of inhaled steroids; Z79.899 Other long term (current) drug therapy
CPT/HCPCS: 36415; 71020; 80048; 80053; 82550; 82553; 83036; 83735; 83880; 84484; 85025; 85610; 85730; 87040; 87077; 87186; 93005; 93306; 94640; 96361; 96365; 96372; 96375; 99212; 99285

== ENCOUNTER 2017-05-01 15:26 | Emergency (ER) | payer MEDICARE, BC ==
[2017-05-01 15:44] VITALS: TEMP 96.7
[2017-05-01] MEDS ORDERED: SODIUM CHLORIDE 0.9% 500 ML IV STA (17:02)
--- NOTE | 2017-05-01 17:08 | ED ---
General Adult HPI - General Chief complaint: Fall Stated complaint: Fell/Back Pain Time Seen by Provider: 05/01/17 16:48 Source: patient, family, RN notes reviewed Mode of arrival: wheelchair Limitations: no limitations - History of Present Illness Initial comments: Patient is a pleasant 82-year-old female presenting to the emergency Department with sacral pain. Patient got dizzy this morning and fell when she turned around. Patient struck her bottom when she landed and has complained of sacral discomfort since that time. No history of previous injury there previously patient states she does get dizzy at times. Patient has not been dizzy since the incident this morning. Patient is not overly concerned about the dizziness however is agreeable to further evaluation patient did not pass out. No head injury. No chest pain or dyspnea. No abdominal pain. No other area of injury. Patient is ambulatory. - Related Data Home Medications Medication Instructions Recorded Confirmed ALPRAZolam [Xanax] 0.5 mg PO TID PRN 12/18/16 05/01/17 Diltiazem HCl [Cartia Xt] 240 mg PO DAILY 12/18/16 05/01/17 Ipratropium-Albuterol Nebulize 3 ml INHALATION RT-TID PRN 12/18/16 05/01/17 [Duoneb 0.5 mg-3 mg/3 ml Soln] Metoprolol Tartrate [Lopressor] 12.5 mg PO BID 12/18/16 05/01/17 Polyethylene Glycol 3350 [Miralax] 17 gm PO DAILY PRN 12/18/16 05/01/17 Sertraline [Zoloft] 100 mg PO DAILY 12/18/16 05/01/17 Simvastatin [Zocor] 20 mg PO HS 12/18/16 05/01/17 Tiotropium [place] [Spiriva 1 cap INHALATION RT-DAILY 12/18/16 05/01/17 Respimat] [id number]-DM 600/30MG [Mucinex 1 tab PO Q12HR PRN 12/18/16 05/01/17 Dm] Acetaminophen Tab [Tylenol Tab] 500 mg PO HS 05/01/17 05/01/17 Allergies Allergy/AdvReac Type Severity Reaction Status Date / Time codeine Allergy hives Verified 05/01/17 16:57 meperidine HCl [From Demerol] Allergy Unknown Verified 05/01/17 16:57 Sulfa (Sulfonamide Allergy Unknown Verified 05/01/17 16:57 Antibiotics) Review of Systems ROS Statement: Those systems with pertinent positive or pertinent negative responses have been documented in the HPI. ROS Other: All systems not noted in ROS Statement are negative. Constitutional: Denies: fever Eyes: Denies: eye pain ENT: Denies: ear pain Respiratory: Denies: cough, dyspnea Cardiovascular: Denies: chest pain Endocrine: Denies: fatigue Gastrointestinal: Denies: abdominal pain Genitourinary: Denies: dysuria Musculoskeletal: Denies: arthralgia Skin: Denies: rash Neurological: Denies: headache, weakness Past Medical History Past Medical History: COPD, Diabetes Mellitus History of Any Multi-Drug Resistant Organisms: None Reported Past Surgical History: Hysterectomy, Orthopedic Surgery Past Anesthesia/Blood Transfusion Reactions: No Reported Reaction Past Psychological History: No Psychological Hx Reported Smoking Status: Former smoker Past Alcohol Use History: None Reported Past Drug Use History: None Reported General Exam Limitations: no limitations General appearance: alert, in no apparent distress Head exam: Present: atraumatic Eye exam: Present: normal appearance, PERRL ENT exam: Present: normal oropharynx Neck exam: Present: normal inspection Respiratory exam: Present: normal lung sounds bilaterally Cardiovascular Exam: Present: regular rate, normal rhythm GI/Abdominal exam: Present: soft. Absent: tenderness Extremities exam: Present: normal inspection, full ROM. Absent: tenderness Back exam: Present: tenderness (Mild tenderness lower sacrum.) Neurological exam: Present: alert. Absent: motor sensory deficit Expanded Cranial nerves: EOM's Intact: Normal Sensory exam: Upper Extremity Light Touch: Normal, Lower Extremity Light Touch: Normal Motor strength exam: RUE: 5, LUE: 5, RLE: 5, LLE: 5 Psychiatric exam: Present: normal affect, normal mood Skin exam: Present: normal color Course Vital Signs 05/01/17 05/01/17 15:39 17:53 Temperature 96.7 F L Pulse Rate 85 77 Respiratory 16 18 Rate Blood Pressure 157/82 121/58 O2 Sat by Pulse 91 L 95 Oximetry EKG Findings - EKG Comments: EKG Findings:: Sinus rhythm 79. [place] 150. QRS 108. QT 46. QTc 465. Left axis. Incomplete right bundle branch block. LVH. No acute ST change. Medical Decision Making - Medical Decision Making Patient reevaluated and resting comfortably in bed. Patient and family updated on results and need for follow-up. - Lab Data Result diagrams: 05/01/17 16:53 05/01/17 16:53 Lab Results 05/01/17 05/01/17 Range/Units 16:53 16:53 WBC 11.5 H (3.8-10.6) k/uL RBC 4.36 (3.80-5.40) m/uL Hgb 12.7 (11.4-16.0) gm/dL Hct 38.0 (34.0-46.0) % MCV 87.3 (80.0-100.0) fL MCH 29.1 (25.0-35.0) pg MCHC 33.3 (31.0-37.0) g/dL RDW 13.8 (11.5-15.5) % Plt Count 392 (150-450) k/uL Neutrophils % 84 % Lymphocytes % 10 % Monocytes % 5 % Eosinophils % 1 % Basophils % 0 % Neutrophils # 9.7 H (1.3-7.7) k/uL Lymphocytes # 1.1 (1.0-4.8) k/uL Monocytes # 0.5 (0-1.0) k/uL Eosinophils # 0.1 (0-0.7) k/uL Basophils # 0.0 (0-0.2) k/uL Poikilocytosis Slight Sodium 142 (137-145) mmol/L Potassium 4.0 (3.5-5.1) mmol/L Chloride 104 (98-107) mmol/L Carbon Dioxide 29 (22-30) mmol/L Anion Gap 9 mmol/L BUN 14 (7-17) mg/dL Creatinine 0.67 (0.52-1.04) mg/dL Est GFR (MDRD) Af Amer >60 (>60 ml/min/1.73 sqM) Est GFR (MDRD) Non-Af >60 (>60 ml/min/1.73 sqM) Glucose 115 H (74-99) mg/dL Calcium 9.8 (8.4-10.2) mg/dL Total Bilirubin 0.5 (0.2-1.3) mg/dL AST 22 (14-36) U/L ALT 28 (9-52) U/L Alkaline Phosphatase 132 H (38-126) U/L Total Protein 6.7 (6.3-8.2) g/dL Albumin 3.6 (3.5-5.0) g/dL - Radiology Data Radiology results: report reviewed (Computed tomography scan of the brain reveals no acute process.), image reviewed (Sacral x-ray shows no definitive fracture.) Disposition Clinical Impression: Fall, Sacral contusion Disposition: HOME SELF-CARE Condition: Stable Instructions: Fall Prevention for Older Adults (ED), Contusion in Adults (ED), Dizziness (ED) Additional Instructions: Please follow-up with primary care physician in the next couple days for recheck. Please consider inflatable doughnut to sit on that is available at pharmacies. [id number] Tylenol as needed. Return for increased pain, increased dizziness or falling , weakness or confusion, worsening symptoms or other concerns or Referrals: Sarah Lawrence MD [Primary Care Provider] - 1-2 days Time of Disposition: 18:28
[2017-05-01 17:19] LABS: Basophils % (A) 0 %; CH 29.8; CHCM 34.3; Eosinophils # (A) 0.1 k/uL (0-0.7); Eosinophils % (A) 1 %; HDW 3.73; HGB 12.7 gm/dL (11.4-16.0); Luc # (Auto) 0.11; Luc % (Auto) 1; Lymphocytes # (A) 1.1 k/uL (1.0-4.8); Lymphocytes % (A) 10 %; MCH 29.1 pg (25.0-35.0); MCHC 33.3 g/dL (31.0-37.0); MCV 87.3 fL (80.0-100.0); Mean Platelet Volume 6.7; Monocytes # (A) 0.5 k/uL (0-1.0); Monocytes % (A) 5 %; Neutrophils # (A) 9.7 k/uL (1.3-7.7); Neutrophils % (A) 84 %; Poikilocytosis Slight; RBC 4.36 m/uL (3.80-5.40); RDW 13.8 % (11.5-15.5); WBC 11.5 k/uL (3.8-10.6); WBC (Perox) 11.01
[2017-05-01 17:28] LABS: ALT 28 U/L (9-52); AST 22 U/L (14-36); Alkaline Phosphatase 132 U/L (38-126); Anion Gap 9 mmol/L; Blood Urea Nitrogen 14 mg/dL (7-17); Calcium 9.8 mg/dL (8.4-10.2); Carbon Dioxide 29 mmol/L (22-30); Chloride 104 mmol/L (98-107); Glucose 115 mg/dL (74-99); Non-African American GFR(MDRD) >60 (>60 ml/min/1.73 sqM); Sodium 142 mmol/L (137-145); Total Bilirubin 0.5 mg/dL (0.2-1.3); Total Protein 6.7 g/dL (6.3-8.2)
--- NOTE | 2017-05-01 17:44 | CT ---
EXAMINATION TYPE: CT brain wo con DATE OF EXAM: 05/01/2017 COMPARISON: 03/19/2015 HISTORY: Fall and dizziness CT DLP: 2208 mGycm Automated exposure control for dose reduction was used. FINDINGS: There is cerebral cortical atrophy. There is no mass effect nor midline shift. There is no sign of in tracranial hemorrhage. The calvarium is intact. There is some mild patchy 2 cm area of hypodensity in the anterior left internal capsule. IMPRESSION: Cerebral atrophy and chronic small vessel ischemia. No acute intracranial abnormality. There is clearing of right frontal scalp hematoma compared to old exam.
--- NOTE | 2017-05-01 17:50 | XR ---
EXAMINATION TYPE: XR sacrum coccyx DATE OF EXAM: 05/01/2017 COMPARISON: NONE HISTORY: Pain TECHNIQUE: 3 views FINDINGS: Segments appear to have normal alignment. There is osteopenia. Sacroiliac joints appear int act. IMPRESSION: No fracture seen. Constipation is noted with retained rectal fecal material.
[2017-05-01 17:54] VITALS: RESP 18
[2017-05-01 19:12] VITALS: BP 151/80; PULSE 75
== END 2017-05-01 19:12 | disposition home or self-care (01) ==
LOC: EC 15:26
DX: S30.0XXA Contusion of lower back and pelvis, initial encounter (principal); J44.9 Chronic obstructive pulmonary disease, unspecified; Z87.891 Personal history of nicotine dependence; Z79.899 Other long term (current) drug therapy; Z88.2 Allergy status to sulfonamides; Z88.5 Allergy status to narcotic agent; W18.39XA Other fall on same level, initial encounter
CPT/HCPCS: 36415; 70450; 72220; 80053; 85025; 93005; 99284